=== PATIENT | female | born 1995 | race American Indian/Alaskan Native ===

== ENCOUNTER 2021-03-08 18:21 | Emergency (ER) | payer SELFPAY ==
[2021-03-08 18:42] VITALS: BP 119/81
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
== END 2021-03-08 21:49 | disposition home or self-care (01) ==
LOC: ED 18:21
DX: S16.1XXA Strain of muscle, fascia and tendon at neck level, initial encounter (principal); S50.11XA Contusion of right forearm, initial encounter; Z91.041 Radiographic dye allergy status; V89.2XXA Person injured in unspecified motor-vehicle accident, traffic, initial encounter; Y93.89 Activity, other specified; Y92.89 Other specified places as the place of occurrence of the external cause; Y99.8 Other external cause status
CPT/HCPCS: 72040; 72070; 99282; 99283

== ENCOUNTER 2022-01-11 13:52 | Emergency (ER) | payer SELFPAY ==
[2022-01-11 14:33] VITALS: BP 160/100
--- NOTE | 2022-01-11 17:40 | Ultrasound Report ---
ULTRASOUND OBSTETRIC INDICATION / CLINICAL INFORMATION: abdominal pain. Vaginal spotting TECHNIQUE: Transabdominal and Transvaginal. COMPARISON: None available. FINDINGS: GESTATIONAL SAC: Well-defined oval shape and intrauterine in location. Gestational sac measures 13 mm corresponding to a 6 week 1 day gestation. YOLK SAC: No significant abnormality. EMBRYO/FETUS: No pole is identified. Uterus: Gestational sac and yolk sac are seen within the uterine cavity. No pole is identified at this time. No heartbeat is identified... This time. ADNEXA: There is a 2.2 cm complex cyst in the left ovary. FREE FLUID: None. ADDITIONAL FINDINGS: None. IMPRESSION: 1. Gestational sac with yolk sac is noted in the uterus. No pole is identified. No heartb eat is seen. Correlation with serum beta hCG level is recommended. Follow-up ultrasound should be obt ained as clinically warranted to reevaluate for viable . Signer Name: Carlos Weiss MD Signed: 01/11/2022 5:36 PM Workstation Name: [email or web address] [facility]
[2022-01-11 18:08] LABS: Bacteria,Urine 2+ /HPF (Negative); Mucus,Urine 3+ /HPF
[2022-01-11 18:14] LABS: Color,Urine Yellow (Yellow)
== END 2022-01-11 20:40 | disposition left against medical advice (07) ==
LOC: ED 13:52
DX: R06.02 Shortness of breath (principal); Z53.21 Procedure and treatment not carried out due to patient leaving prior to being seen by health care provider
CPT/HCPCS: 76801; 76817; 81001; 87086